=== PATIENT | female | born 1995 | race Caucasian/White ===

== ENCOUNTER 2019-02-09 19:26 | Emergency (ER) | payer MEDICAID ==
[~2019-02-09] VITALS: Ht 175.3 cm; Wt 87.1 kg
--- NOTE | 2019-02-09 20:00 | NUR ---
Patient to ER bed 3 to gown for evaluation. Side rails up.
--- NOTE | 2019-02-09 20:10 | NUR ---
ER at bedside examining patient.
--- NOTE | 2019-02-09 20:10 | NUR ---
Pt came to the ED for itchy rash over face and neck 1 hour prior to ED arrival. Reports that she took benadryl 50 mg PO prior to ED arrival. Reports pt has an allergy to shell fish but denies eating anything with shell fish. Denies new perfumes, soaps, lotions. Denies n/v/d or fever. No other complaints/injuries noted. Will cont. to monitor.
[2019-02-09 20:35] VITALS: BP_SYST 143
--- NOTE | 2019-02-09 22:48 | NUR ---
Patient given written and verbal discharge instructions and verbalizes understanding. ER MD discussed with patient the results and treatment provided. Patient in stable condition. ID arm band removed. Patient educated on pain management and to follow up with PMD. Pain Scale 0/10. Opportunity for questions provided and answered. Medication side effect fact sheet provided.
[2019-02-10 00:45] VITALS: BP_SYST 128
== END 2019-02-09 22:48 | disposition home or self-care (01) ==
LOC: SED 19:26
DX: T78.40XA Allergy, unspecified, initial encounter (principal); J45.909 Unspecified asthma, uncomplicated; Z91.013 Allergy to seafood; X58.XXXA Exposure to other specified factors, initial encounter
CPT/HCPCS: 99283